=== PATIENT | female | born 1955 | race Caucasian/White ===

== ENCOUNTER 2021-04-22 07:16 | Inpatient (IN) | payer OTHER, MEDICAID ==
[2021-04-20 15:41] LABS: Basophils # (auto) 0.2 10 ^3/uL (0-0.2); Basophils % (auto) 1.5 % (0.0-2.0); Eosinophils # (auto) 0.5 10 ^3/uL (0-0.8); Eosinophils % (auto) 4.7 % (0.0-7.0); Hematocrit 44.1 % (36.0-46.0); Hemoglobin 14.9 g/dL (12.2-16.2); Lymphocytes # (auto) 3.1 10 ^3/uL (0.4-5.4); Lymphocytes % (auto) 30.6 % (10.0-50.0); Mean Corpuscular Hemoglobin 32.8 pg (28.0-32.0); Mean Corpuscular Hgb Conc. 33.8 g/dL (32.0-36.0); Mean Corpuscular Volume 97.1 fL (80.0-100.0); Monocytes # (auto) 0.6 10 ^3/uL (0-1.3); Monocytes % (auto) 5.8 % (0.0-12.0); Neutrophils # (auto) 5.8 10 ^3/uL (1.6-8.6); Neutrophils % (auto) 57.4 % (37.0-80.0); Nucleated Red Blood Cells % 0.1 %; Red Blood Cells 4.54 10^6/uL (4.0-5.20); Red Cell Distribution Width 14.4 % (11.8-14.3); White Blood Cell 10.2 10^3/uL (4.4-10.8)
[2021-04-20 15:49] LABS: INR 0.98 (0.9-1.15); Partial Thromboplastin Time 27.9 sec (23.6-33.0)
[2021-04-20 15:52] LABS: Albumin 3.9 g/dL (3.4-5.0); Calcium 9.1 mg/dL (8.5-10.1); Potassium 4.2 mmol/L (3.5-5.1)
[2021-04-20 15:56] LABS: BUN/Creatinine Ratio 14.3; Bilirubin, Total 0.4 mg/dL (0.2-1.0); Total Protein 7.2 g/dL (6.4-8.2)
[2021-04-20 16:12] LABS: Urine Bacteria NONE SEEN /hpf (None Seen); Urine Blood Negative /uL (Negative); Urine Specific Gravity 1.009 (1.001-1.035); Urine WBC 4 /hpf (0 - 5)
[~2021-04-22] VITALS: Ht 167.6 cm; Wt 86.4 kg
[2021-04-22] VITALS (9 sets, daily range): BP systolic 98–121; BP diastolic 55–77
[~2021-04-22 07:16] MED LIST: AML5T PO; CLON0.1T PO; CYCL-837 PO; DULO60CA PO; FLUT110A IN; HYDR-4072 PO; IPRAAER6 IN; LISI-283 PO; TRAZ1TAB12 PO
[2021-04-22 08:32] LABS: Albumin 3.5 g/dL (3.4-5.0); Calcium 8.4 mg/dL (8.5-10.1); Potassium 4.6 mmol/L (3.5-5.1)
[2021-04-22 08:37] LABS: BUN/Creatinine Ratio 17.6; Bilirubin, Total 0.4 mg/dL (0.2-1.0); Total Protein 6.3 g/dL (6.4-8.2)
[2021-04-22] MEDS ORDERED: ceFAZolin 1GM/50ML 100 ML IV ONE (09:20)
[2021-04-22] MEDS ORDERED: ONDANSETRON HCL 4 MG/2 ML VIAL ONE (10:05)
[2021-04-22] MEDS ORDERED: MIDAZOLAM HCL 2MG/2ML 2ml VIAL (1mg/ml) ONE ×2 (10:05→11:11)
[2021-04-22] MEDS ORDERED: fentaNYL CITRATE 100 MCG/2 ML VL ONE (10:05)
[2021-04-22] MEDS ORDERED: EPINEPHrine HCL 1 MG/1 ML AMP ONE ×3 (10:05→12:28)
[2021-04-22] MEDS ORDERED: PROPOFOL 10 MG/ML 20 ML IV ONE ×2 (10:05→12:45)
[2021-04-22] MEDS ORDERED: MORPHINE SULF PF 2 MG/2 ML SYRG ONE (10:05)
[2021-04-22] MEDS ORDERED: BUPIVACAINE/DEXTROSE MPF 0.75% 2 ML AMP IT ONE (10:05)
[2021-04-22] MEDS ORDERED: TRANEXAMIC ACID 20 ML ONE (10:24)
[2021-04-22] MEDS ORDERED: TETRACAINE 1% INJ 2 ML VIAL IJ ONE (10:25)
[2021-04-22] MEDS ORDERED: VANCOMYCIN HCL 1000 MG VL ONE (10:28)
[2021-04-22] MEDS ORDERED: DexAMETHasone SOD PHOS 10MG/1ML VIAL INJ ONE (10:53)
[2021-04-22] MEDS ORDERED: diphenhdrAMINE HCL 50 MG/1 ML VL IV PRN (12:00)
[2021-04-22] MEDS ORDERED: NALOXONE HCL 0.4 MG/ML VIAL IV PRN (12:00)
[2021-04-22] MEDS ORDERED: HYDROmorphone HCL 2 MG/ML VL IV PRN ×2 (12:00→14:00)
[2021-04-22] MEDS ORDERED: MORPHINE SULFATE 4 MG/ML SYR/VIAL IV PRN (12:00)
[2021-04-22] MEDS ORDERED: ONDANSETRON HCL 4 MG/2 ML VIAL IV PRN (12:00)
[2021-04-22] MEDS ORDERED: ROPIVACAINE 0.5% (5MG/ML) 20ML AMPULE IJ ONE (12:28)
[2021-04-22] MEDS ORDERED: IPRATROPIUM BROM 0.5 MG/2.5ML INH SOL NEB ONE (13:45)
[2021-04-22] MEDS ORDERED: ALBUTEROL SULF 2.5 MG/0.5ML(0.5%) NEB SOLN NEB ONE (13:45)
[2021-04-22] MEDS ORDERED: oxyCODONE HCL 5MG TAB PO PRN (14:00)
[2021-04-22] MEDS ORDERED: ceFAZolin 2 GM in D5W 5% 100 ML IV SCH (14:00)
[2021-04-22] MEDS: ALBUTEROL SULF 2.5 MG/0.5ML(0.5%) NEB SOLN NEB SCH ×2 (14:00→22:00)
[2021-04-22] MEDS ORDERED: IPRATROPIUM-ALBUTEROL 20mCg/100mCg INHALER IN SCH (14:00)
[2021-04-22] MEDS: D5W/LACTATED RINGERS 1,000 ML IV SCH (14:00)
[2021-04-22] MEDS: IPRATROPIUM BROM 0.5 MG/2.5ML INH SOL NEB SCH ×2 (14:00→22:00)
[2021-04-22] MEDS ORDERED: HCTZ 25 MG TAB PO ONE (14:00)
[2021-04-22] MEDS: ACETAMINOPHEN 325 MG TAB PO SCH (17:43)
[2021-04-22] MEDS: KETOROLAC TROMETH 30 MG/ML 1ML VIAL IV SCH (17:44)
[2021-04-22] MEDS: ceFAZolin 2 GM in D5W 5% 100 ML IV SCH (18:58)
[2021-04-22] MEDS: oxyCODONE HCL 5MG TAB PO PRN (20:55)
[2021-04-22] MEDS ORDERED: traZODone HCL 50 MG TAB PO SCH (22:00)
[2021-04-22] MEDS ORDERED: cloNIDine HCL 0.1 MG TAB PO SCH (22:00)
[2021-04-22] MEDS: PREGABALIN 25 MG CAP PO SCH (22:30)
[2021-04-22] MEDS: DULoxetine HCL 30 MG CAP PO SCH (22:31)
[2021-04-23] VITALS (20 sets, daily range): BP systolic 85–136; BP diastolic 49–82
[2021-04-23] MEDS: KETOROLAC TROMETH 30 MG/ML 1ML VIAL IV SCH ×3 (00:14→12:03)
[2021-04-23] MEDS: ACETAMINOPHEN 325 MG TAB PO SCH ×3 (00:15→12:03)
[2021-04-23] MEDS: oxyCODONE HCL 5MG TAB PO PRN ×3 (03:01→13:17)
[2021-04-23] MEDS: ceFAZolin 2 GM in D5W 5% 100 ML IV SCH (03:02)
[2021-04-23] MEDS: D5W/LACTATED RINGERS 1,000 ML IV SCH ×2 (03:13)
[2021-04-23 06:04] LABS: Basophils # (auto) 0 10 ^3/uL (0-0.2); Basophils % (auto) 0.1 % (0.0-2.0); Eosinophils # (auto) 0 10 ^3/uL (0-0.8); Hematocrit 33.2 % (36.0-46.0); Hemoglobin 11.3 g/dL (12.2-16.2); Lymphocytes # (auto) 0.9 10 ^3/uL (0.4-5.4); Lymphocytes % (auto) 9.2 % (10.0-50.0); Mean Corpuscular Hemoglobin 33.6 pg (28.0-32.0); Mean Corpuscular Hgb Conc. 34.2 g/dL (32.0-36.0); Mean Corpuscular Volume 98.2 fL (80.0-100.0); Monocytes # (auto) 0.7 10 ^3/uL (0-1.3); Monocytes % (auto) 7.1 % (0.0-12.0); Neutrophils # (auto) 8.5 10 ^3/uL (1.6-8.6); Neutrophils % (auto) 83.6 % (37.0-80.0); Nucleated Red Blood Cells % 0.1 %; Red Blood Cells 3.38 10^6/uL (4.0-5.20); Red Cell Distribution Width 14.1 % (11.8-14.3); White Blood Cell 10.1 10^3/uL (4.4-10.8)
[2021-04-23 06:22] LABS: Potassium 4.8 mmol/L (3.5-5.1)
[2021-04-23] MEDS: IPRATROPIUM BROM 0.5 MG/2.5ML INH SOL NEB SCH (06:26)
[2021-04-23] MEDS: ALBUTEROL SULF 2.5 MG/0.5ML(0.5%) NEB SOLN NEB SCH (06:26)
[2021-04-23 06:28] LABS: BUN/Creatinine Ratio 23.1; Calcium 7.9 mg/dL (8.5-10.1)
[2021-04-23] MEDS: PREGABALIN 25 MG CAP PO SCH (08:44)
[2021-04-23] MEDS: DULoxetine HCL 30 MG CAP PO SCH (08:44)
[2021-04-23] MEDS ORDERED: amLODIPine BESYLATE 5 MG TAB PO SCH (10:00)
[2021-04-23] MEDS ORDERED: LISINOPRIL 10 MG TAB PO SCH (10:00)
[2021-04-23] MEDS ORDERED: ASPirin 81 mg TAB PO SCH (10:00)
== END 2021-04-23 17:25 | disposition home health service (06) | DRG 470 ==
LOC: SUR 07:16 → TELE 13:47 → TELE-CENTR 15:49
PROVIDERS: ADMIT Orthopaedic Surgery; ATTEND Orthopaedic Surgery
PROC: 8E0YXBZ Computer Assisted Procedure of Lower Extremity (ICD-10-PCS; 2021-04-22)
PROC: 0SRD069 Replacement of Left Knee Joint with Oxidized Zirconium on Polyethylene Synthetic Substitute, Cemented, Open Approach (ICD-10-PCS; principal; 2021-04-22 10:53)
DX: M17.12 Unilateral primary osteoarthritis, left knee (principal); D62 Acute posthemorrhagic anemia; F32.9 Major depressive disorder, single episode, unspecified; F41.9 Anxiety disorder, unspecified; I10 Essential (primary) hypertension; J44.9 Chronic obstructive pulmonary disease, unspecified; Z82.49 Family history of ischemic heart disease and other diseases of the circulatory system; Z82.5 Family history of asthma and other chronic lower respiratory diseases; Z88.8 Allergy status to other drugs, medicaments and biological substances; Z20.822 Contact with and (suspected) exposure to COVID-19
CPT/HCPCS: 36415; 73560; 80048; 80053; 81001; 85025; 85610; 85730; 86850; 86900; 86901; 94640; 97163; C1713; G0378; J0171; J0690; J1100; J1885; J2250; J2405; J2704; J7060

== ENCOUNTER 2022-07-25 12:37 | Emergency (ER) | payer OTHER, MEDICAID ==
[~2022-07-25] VITALS: Ht 167.6 cm; Wt 63.5 kg
[2022-07-25] MEDS ORDERED: HYDROcodone-ACET 10/325MG TAB PO ONE (13:45)
[2022-07-25] MEDS ORDERED: HYDR-4902 PO (15:43)
[2022-07-25 16:01] VITALS: BP 118/62
== END 2022-07-25 16:02 | disposition home or self-care (01) ==
LOC: ER 12:37 → EDBD 12:37 → ER 16:02
DX: S83.91XA Sprain of unspecified site of right knee, initial encounter (principal); I10 Essential (primary) hypertension; F17.210 Nicotine dependence, cigarettes, uncomplicated; W18.00XA Striking against unspecified object with subsequent fall, initial encounter; Y93.01 Activity, walking, marching and hiking; Y92.89 Other specified places as the place of occurrence of the external cause; Y99.8 Other external cause status
CPT/HCPCS: 29505; 72192; 73562; 73700